=== PATIENT | male | born 1965 | race Caucasian/White ===

== ENCOUNTER 2024-06-12 20:06 | Emergency (ER) | payer SELFPAY ==
[~2024-06-12] VITALS: Ht 167.6 cm; Wt 75.7 kg
[2024-06-12 20:06] VITALS: BP 121/75; PULSE 110; RESP 20; TEMP 98; O2SAT 95
== END 2024-06-12 20:45 ==
LOC: MED 20:06
DX: Z04.3 Encounter for examination and observation following other accident (principal); I10 Essential (primary) hypertension; V89.2XXA Person injured in unspecified motor-vehicle accident, traffic, initial encounter; Y93.89 Activity, other specified; Y92.89 Other specified places as the place of occurrence of the external cause; Y99.8 Other external cause status
CPT/HCPCS: 99283